=== PATIENT | female | born 1985 | race Caucasian/White ===

== ENCOUNTER → 2022-08-23 10:08 | Outpatient (BNVA) | payer OTHER, SELFPAY | PROVIDERS: PCP Family Medicine; Visit Provider Nurse Practitioner Family | DX: Z13.89 Encounter for screening for other disorder (principal) ==

== ENCOUNTER → 2022-11-23 14:25 | Outpatient (BNVA) | payer OTHER, SELFPAY | PROVIDERS: PCP Family Medicine; Visit Provider Nurse Practitioner Family | DX: Z13.89 Encounter for screening for other disorder (principal) ==

== ENCOUNTER 2023-11-21 11:07 | Outpatient (AMB) | payer OTHER, SELFPAY ==
--- NOTE | 2023-11-21 11:08 | MHC.OFFVIS ---
Intake Visit Reasons: 1 yr f/u appt for sleep - LVM Intake Note: Patient following up. Patient is and wants to know if pressures are adequate,she uses a bipap Allergies teriparatide [From [employer]] Allergy (Mild, Verified 11/21/23 11:09) Chills HPI Comments Details: 38-yr-old female presents for follow-up visit via televideo. Pt is 13 weeks . She has been having a lot of nausea and fatigue. Her OB is Dr Dalton Esparza at [facility] [employer] in [place]. Pt reports prior to becoming , she found her PAP tx to be very effective. She notes she has had apneas since infancy. If she takes a daytime nap w/o her PAP device, she can have apneas and loud breathing. 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 Can have SOB on exertion. Denies diplopia or ptosis. Compliance Report Initial compliance period 02/11/2021 - 03/12/2021 Usage days 29/30 days (97%) Usage >= 4 hours 25 days (83%) Average usage (days used) 6 hours 5 minutes [employer] 10 ST-A Serial number [id number] Mode iVAPS Target Alveolar Ventilation (Va) 2.9 L/min EPAP 10 cmH2O Min PS 4 cmH2O Max PS 20 cmH2O Target Patient Rate 10 bpm Residual AHI: 3.3/hr. [facility] Medical History (Updated 11/21/23 @ 21:24 by MISSY Marcano) Hip dysplasia Family History Paternal Grandfather Dementia Paternal Grandmother Diabetes Father Alcoholism Hypertension Anxiety Waldenstrom macroglobulinemia Mother Diabetes Maternal Grandfather Cerebrovascular accident (CVA) Myocardial infarction Diabetes Maternal Grandmother Hyperlipidemia Hypertension Social History Alcohol intake: current Alcohol intake frequency: holidays/special occasions only Patient Tobacco Use Status: Never used Tobacco Female Reproductive History Menstrual control method: diaphragm Review of Systems Const All systems reviewed & are unremarkable except as noted in HPI and below Physical Exam Const General: no acute distress Orientation/consciousness: patient oriented x3 Resp Effort & Inspection: able to speak in complete sentences Neuro General: patient oriented x3 Psych Mental Status: mental status grossly normal Speech and movement: Clear speech present Attitude: cooperative Telehealth Telehealth Telehealth Platform: [place] Location of provider rendering services: practice address Location of patient: address on file Patient Identification confirmed using: Name, : Yes Telehealth method: video Patient verbally consented to treatment: Yes Patient verbally consented to billing insurance company: Yes Patient informed of any privacy concerns related to visit: Yes Minutes spent on Phone/Video with Pt.: 23 Results Reviewed Results Reviewed: PAP compliance report- see HPI Assessment & Plan Assessment & Plan (1) Complex sleep apnea syndrome: Code(s): G47.31 - Primary central sleep apnea Category: Medical (2) Congenital myasthenic syndrome: Code(s): 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 Will monitor IVAP compliance data more closley during . Pt should ensure that her OB and all other health providers are aware of myasthenia syndrome. Future considerations- Mestinon trial, as this may reduce her need for IVAP tx. Case d/w Dr Citlalli Peralta. f/u in 3 months or sooner prn. Coding Level of Care Code Tele Est Pt Level 3 (78726) Diagnoses Complex sleep apnea syndrome G47.31 Congenital myasthenic syndrome G70.2
== END 2023-11-21 11:30 | disposition home or self-care (01) ==
LOC: HO.HSMS 11:08
PROVIDERS: Absent Provider Nurse Practitioner Family; PCP Family Medicine; Visit Provider Nurse Practitioner Family
DX: G47.31 Primary central sleep apnea (principal); G70.2 Congenital and developmental myasthenia; Z33.1 Pregnant state, incidental
CPT/HCPCS: 99213

== ENCOUNTER → 2023-11-21 11:07 | Outpatient (BNVA) | payer OTHER, SELFPAY | PROVIDERS: Absent Provider Nurse Practitioner Family; PCP Family Medicine; Visit Provider Nurse Practitioner Family ==

== ENCOUNTER 2024-02-14 07:38 | Outpatient (AMB) | payer OTHER, SELFPAY ==
--- NOTE | 2024-02-14 07:39 | MHC.OFFVIS ---
Intake Visit Reasons: 3 Month F/U-LVM Intake Note: Pt presents for 3 month follow up for sleep apnea via telehealth. Account Strategist Required: No Allergies teriparatide [From [employer]] Allergy (Mild, Verified 02/14/24 07:40) Chills HPI Comments Details: 38-yr-old female presents for f/u televideo visit via [employer]. Pt denies any significant interval medical changes. Pt reports she is 25 weeks . She is generally sleeping ok. May wake up to void and have some difficulty falling back to sleep d/t insomnia . Pt states she plans to trial Mestinon after her delivery but once she completes breast feeding. She describes her primary CMS s/s/ are sleep apnea, muscle cramps. She feels swallowing issues at times, but states her swallwoing studies have been normal. Denies diplopia or visual symptoms. Her symptoms can be exacerbated by heat/humidity. She states her dtr's neurologist told her that she is not at risk for a myasthenia crisis. Compliance Report: 01/16/2024 - 02/14/2024- no data recordered after 02/03/24 however pt states she is using it nightly. Usage days 20/30 days (67%) Usage days >= 4 hours 19 days (63%) Usage days < 4 hours 1 days (3%) AirCurve 10 - Serial number [id number] Mode iVAPS Target Alveolar Ventilation (Va) 2.9 L/min EPAP 10 cmH2O Min PS 4 cmH2O Max PS 20 cmH2O Target Patient Rate 10 bpm Residual Events per hour AI: 0.1 HI: 0.5 AHI: 0.6 PFSH Medical History (Updated 11/21/23 @ 21:24 by MISSY Marcano) Hip dysplasia Family History Paternal Grandfather Dementia Paternal Grandmother Diabetes Father Alcoholism Hypertension Anxiety Waldenstrom macroglobulinemia Mother Diabetes Maternal Grandfather Cerebrovascular accident (CVA) Myocardial infarction Diabetes Maternal Grandmother Hyperlipidemia Hypertension Social History Alcohol intake: current Alcohol intake frequency: holidays/special occasions only Patient Tobacco Use Status: Never used Tobacco Physical Exam Const General: cooperative and no acute distress Orientation/consciousness: patient oriented x3 Resp Effort & Inspection: normal respiratory effort and able to speak in complete sentences Neuro General: patient oriented x3 Cognition (Neuro): normal cognition Psych Appearance: grossly normal Mental Status: mental status grossly normal Speech and movement: Normal speech and movement present Affect: normal affect Attitude: cooperative Telehealth Telehealth Telehealth Platform: [employer] Location of provider rendering services: practice address Location of patient: address on file Patient Identification confirmed using: Name, : Yes Telehealth method: video Patient verbally consented to treatment: Yes Patient verbally consented to billing insurance company: Yes Patient informed of any privacy concerns related to visit: Yes Minutes spent on Phone/Video with Pt.: 24 Assessment & Plan Assessment & Plan (1) Complex sleep apnea syndrome: Code(s): G47.31 - Primary central sleep apnea Category: Medical (2) Congenital myasthenic syndrome: Code(s): 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 Will request transfer to a local respiratory supplier- will request supply order and that machine be reconnected to [employer]. Will monitor IVAP compliance data more closely during . Pt should ensure that her OB and all other health providers are aware of myasthenia syndrome. Concur w/ post-/breast feeding Mestinon trial, as this may reduce her need for IVAP tx. f/u in 3 months or sooner prn. Coding Level of Care Code Tele Est Pt Level 3 (76126) Diagnoses Complex sleep apnea syndrome G47.31 Congenital myasthenic syndrome G70.2
== END 2024-02-14 09:01 | disposition home or self-care (01) ==
LOC: HO.HSMS 07:38
PROVIDERS: PCP Family Medicine; Visit Provider Nurse Practitioner Family
DX: G70.2 Congenital and developmental myasthenia (principal); G47.31 Primary central sleep apnea
CPT/HCPCS: 99213

== ENCOUNTER → 2024-02-14 07:38 | Outpatient (BNVA) | payer OTHER, SELFPAY | PROVIDERS: PCP Family Medicine; Visit Provider Nurse Practitioner Family ==